=== PATIENT | male | born 1945 | race Native Hawaiian/Other Pacific Islander ===

== ENCOUNTER 2024-06-27 08:53 | Emergency (ER) | payer MEDICARE ==
[~2024-06-27] VITALS: Ht 167.6 cm; Wt 63.6 kg
[2024-06-27 09:19] VITALS: TEMP 98.1
[2024-06-27] MEDS ORDERED: CYCL-448 PO (09:25)
[2024-06-27] MEDS ORDERED: GABA-1181 PO (09:25)
[2024-06-27] MEDS ORDERED: NAPR220T57 PO (09:25)
[2024-06-27] MEDS: ACETAMINOPHEN 325 MG TABLET PO ONE (11:48)
[2024-06-27] MEDS: KETOROLAC TROMETHAMINE 30 MG/ML VIAL IM ONE (11:48)
[2024-06-27] MEDS: CYCLOBENZAPRINE HCL 10 MG TABLET PO ONE (11:48)
[2024-06-27 13:05] VITALS: BP 152/86; PULSE 84; RESP 16
== END 2024-06-27 14:40 | disposition home or self-care (01) ==
LOC: EMS 09:01
DX: M54.2 Cervicalgia (principal); E04.1 Nontoxic single thyroid nodule; R91.1 Solitary pulmonary nodule
CPT/HCPCS: 99285; 72125; 96372; J1885